=== PATIENT | male | born 1985 | race Caucasian/White ===

== ENCOUNTER 2018-03-03 15:49 | Emergency (ER) | payer OTHER, SELFPAY ==
[2018-03-03 15:58] VITALS: BP 156/98; PULSE 100; RESP 14; TEMP 36.8; O2SAT 98; BMI 33.2
--- NOTE | 2018-03-03 19:47 | PC.NURSE ---
Pt. to room 13 from [facility]
== END 2018-03-03 20:37 | disposition left against medical advice (07) ==
DX: M54.9 Dorsalgia, unspecified (principal)
CPT/HCPCS: 99281; 99283

== ENCOUNTER 2019-07-20 10:18 | Emergency (ER) | payer OTHER, SELFPAY ==
[2019-07-20 10:18] VITALS: BP 148/87; PULSE 85; RESP 19; TEMP 36.6; O2SAT 97; BMI 33.9
--- NOTE | 2019-07-20 10:30 | DI.RAD.S_ITS ---
PROCEDURE: XR CHEST 1V INDICATIONS: chest pain TECHNIQUE: One view of the chest was acquired. COMPARISON: None. FINDINGS: Surgical changes and devices: None. Lungs and pleura: Lungs are clear. No pleural effusions or pneumothorax. Mediastinum: Mediastinal contours appear normal. Heart size is normal. Bones and chest wall: No suspicious bony lesions. Overlying soft tissues appear unremarkable. IMPRESSION: No acute cardiopulmonary disease process. Dictated by: Zoe Dominguez MD, PhD on 07/20/2019 at 11:10 Approved by: Zoe Dominguez MD, PhD on 07/20/2019 at 11:10
[2019-07-20 10:32] VITALS: BP 148/89; PULSE 87; RESP 17; O2SAT 95
[2019-07-20 10:36] LABS: Add Manual Diff / Slide Review NO; Basophils Absolute Auto 100 /uL (0-100); Basophils Percent Auto 0.7 % (0-2); Eosinophils Absolute Auto 200 /uL (0-450); Eosinophils Percent Auto 1.5 % (2-4); Hematocrit 44.4 % (41-53); Hemoglobin 15.9 g/dL (13.5-17.5); Lymphocytes Absolute Auto 2600 /uL (1100-4500); Lymphocytes Percent Auto 18.4 % (25-40); Mean Corpuscular HGB Conc 35.9 % (30-36); Mean Corpuscular Hemoglobin 31.8 PG (26-34); Mean Corpuscular Volume 88.5 fL (80-100); Monocytes Absolute Auto 900 /uL (0-900); Monocytes Percent Auto 6.6 % (3-14); Neutrophils Absolute Auto 10200 /uL (1500-7000); Neutrophils Percent Auto 72.8 % (50-75); Platelet Count 340 X10^3/uL (150-400); Red Blood Cell Count 5.01 X10^6/uL (4.5-5.9); Red Cell Distribution Width 12.9 % (11.6-14.8); White Blood Cell Count 14.1 X10^3/uL (4.5-11.0)
[2019-07-20] MEDS: MAG HYDROX/ALUMINUM/SIMETH SUS 20 ML, LIDOCAINE VISCOUS 2% 15 ML PO (10:45)
[2019-07-20] MEDS: ASPIRIN 81 MG CHEW TAB 324 MG PO (10:45)
[2019-07-20 10:47] LABS: Alanine Aminotransferase 32 IU/L (<50); Albumin 4.6 g/dL (3.5-5.0); Albumin Globulin Ratio 1.4 (1.0-2.8); Alkaline Phosphatase 75 U/L (38-126); Aspartate Aminotransferase 28 IU/L (17-59); BUN Creatinine Ratio 23.3 (6-22); Bilirubin Total 0.4 mg/dL (0.2-1.3); Blood Urea Nitrogen 14 mg/dL (9-20); Calcium 9.5 mg/dL (8.4-10.2); Carbon Dioxide 23 mmol/L (22-32); Chloride 105 mmol/L (98-107); Creatine Kinase 157 U/L (55-170); Estimated Glomerular Filt Rate > 60.0 mL/min (>60); Globulin 3.2 g/dL (1.7-4.1); Glucose 103 mg/dL (70-100); HEMOLYSIS < 15 (0-50); Lipase 48 U/L (23-300); Potassium 4.1 mmol/L (3.4-5.1); Sodium 138 mmol/L (137-145); Total Protein 7.8 g/dL (6.3-8.2)
--- NOTE | 2019-07-20 10:52 | ED_ITS ---
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 It was nonradiating he denies any shortness of breath with exertion no nausea. He has never felt anything like this before. He does take 800 mg of ibuprofen twice a day for chronic ongoing back pain. He says go he is in the ED it does seem to be getting little bit better. complaint: chest pain Onset (ago): hour(s) Duration: improved Onset: during exertion Pain location: substernal Severity: mild Quality: tightness Pain radiation: none Relieving factors: nothing Exacerbating factors: nothing Related Data Home Medications Medication Instructions Recorded Confirmed cyclobenzaprine 10 mg PO BID PRN 07/20/19 07/20/19 ibuprofen [IBU] 800 mg PO TID PRN 07/20/19 07/20/19 oxycodone-acetaminophen 1 tab PO QID PRN 07/20/19 07/20/19 Allergies Allergy/AdvReac Type Severity Reaction Status Date / Time hydrocodone Allergy Severe ITCHING Verified 07/20/19 10:26 tramadol Allergy Severe Headache Verified 07/20/19 10:26 Review of Systems Review of Systems Narrative: GENERAL: Denies chills, fatigue, malaise, fever, sweats, travel HEENT: Denies sinus pain, ear pain, sore throat, difficulty swallowing, neck pain RESPIRATORY: Denies dyspnea, cough, wheezing, hemoptysis, sputum. CARDIOVASCULAR: See HPI GASTROINTESTINAL: Denies nausea, vomiting, abdominal pain, diarrhea, constipation, melena. : Denies dysuria, frequency, incontinence, hematuria, urinary retention, flank pain. MUSCULOSKELETAL: Denies weakness, joint pain, or bony pain SKIN: No rash, no erythema, no pruritus NEUROLOGIC: Denies weakness, dizziness, headache, numbness, change in speech, confusion PSYCHIATRIC: No concerning psychosocial issues. 12 point review of systems is negative except for those stated above and HPI Patient History Medical History Chronic back pain (Acute) Social History (Reviewed 07/20/19 @ 11:00 by ANUSHKA Mackey Smoking Status: Current some day smoker Smoking Status: Current some day smoker alcohol intake frequency: a few times a month Substance Use Type: does not use Exam Initial Vital Signs Initial Vital Signs: Vital Signs Temperature 97.8 F 07/20/19 10:18 Pulse Rate 85 07/20/19 10:18 Respiratory Rate 19 07/20/19 10:18 Blood Pressure 148/87 H 07/20/19 10:18 Pulse Oximetry 97 07/20/19 10:18 GENERAL: Well-appearing, well-nourished and in no acute distress. HEENT: Head atraumatic,EOMI, pupils reactive, face symmetric, moist mucous membranes CARDIOVASCULAR: Regular rate and rhythm without murmurs, rubs or gallops. RESPIRATORY: Breath sounds equal bilaterally, no wheezes rales or rhonchi. ABDOMEN: Soft, nontender. Normoactive bowel sounds all 4 quadrants. No guar ding or rebound. EXTREMITIES: Normal range of motion, no clubbing or edema. Neurovascularly intact NEUROLOGICAL: Alert and oriented x4.Normal gait and speech. Cranial nerves II through XII grossly intact. SKIN: Warm, dry, no laceration, no petechiae, no rashes or lesions. Scores HEART Score Heart Score history: Slightly Suspicious Heart Score EKG: Normal Heart Score Age: < 45 years old Heart Score risk factors: No known risk factors Heart Score troponin: < or = to normal limit Heart Score Total: 0 Course Orders Ordered: Discontinued Medications Aspirin (Aspirin Chew) 324 mg PO NOW ONE Stop: 07/20/19 10:31 Last Admin: 07/20/19 10:45 Dose: 324 mg Documented by: MOOKIE Al Hydrox/Mg Hydrox/Simethicone 20 ml/ Lidocaine HCl 15 ml 0 ml PO NOW ONE Stop: 07/20/19 10:31 Last Admin: 07/20/19 10:45 Dose: 35 ml Documented by: MOOKIE Vital Signs Vital signs: Vital Signs - 8 hr 07/20/19 10:18 07/20/19 10:32 Temperature 97.8 F Pulse Rate 85 87 Respiratory Rate 19 17 Blood Pressure 148/87 H Blood Pressure [Right Arm] 148/89 H Pulse Oximetry 97 95 MDM - Chest Pain Lab Data Attestation: I reviewed the patient's lab results. Result diagrams: 07/20/19 10:28 07/20/19 10:28 Labs: Lab Results 07/20/19 07/20/19 07/20/19 Range/Units 10: 10:28 12:10 WBC 14.1 H (4.5-11.0) X10^3/uL RBC 5.01 (4.5-5.9) X10^6/uL Hgb 15.9 (13.5-17.5) g/dL Hct 44.4 (41-53) % MCV 88.5 (80-100) fL MCH 31.8 (26-34) PG MCHC 35.9 (30-36) % RDW 12.9 (11.6-14.8) % Plt Count 340 (150-400) X10^3/uL Neut % (Auto) 72.8 (50-75) % Lymph % (Auto) 18.4 L (25-40) % Pettis % (Auto) 6.6 (3-14) % Eos % (Auto) 1.5 L (2-4) % Baso % (Auto) 0.7 (0-2) % Neut # (Auto) 36014 H (7660-4681) /uL Lymph # (Auto) 2600 (6900-1781) /uL Pettis # (Auto) 900 (0-900) /uL Eos # (Auto) 200 (0-450) /uL Baso # (Auto) 100 (0-100) /uL Sodium 138 (137-145) mmol/L Potassium 4.1 (3.4-5.1) mmol/L Chloride 105 (98-107) mmol/L Carbon Dioxide 23 (22-32) mmol/L BUN 14 (9-20) mg/dL Creatinine 0.60 L (0.66-1.25) mg/dL Estimated GFR > 60.0 (>60) mL/min BUN/Creatinine Ratio 23.3 H (6-22) Glucose 103 H (70-100) mg/dL Calcium 9.5 (8.4-10.2) mg/dL Total Bilirubin 0.4 (0.2-1.3) mg/dL AST 28 (17-59) IU/L ALT 32 (<50) IU/L Alkaline Phosphatase 75 (38-126) U/L Total Creatine Kinase 157 (55-170) U/L CK-MB (CK-2) 1.49 (<2.37) ng/mL CK-MB (CK-2) Rel Index 0.9 L (1.5-5.0) % Troponin I < 0.012 < 0.012 (0.01-0.034) ng/mL Total Protein 7.8 (6.3-8.2) g/dL Albumin 4.6 (3.5-5.0) g/dL Globulin 3.2 (1.7-4.1) g/dL Albumin/Globulin Ratio 1.4 (1.0-2.8) Lipase 48 (23-300) U/L Imaging Data Chest x-ray: Radiologist's Impression: PROCEDURE: XR CHEST 1V INDICATIONS: chest pain TECHNIQUE: One view of the chest was acquired. COMPARISON: None. FINDINGS: Surgical changes and devices: None. Lungs and pleura: Lungs are clear. No pleural effusions or pneumothorax. Mediastinum: Mediastinal contours appear normal. Heart size is normal. Bones and chest wall: No suspicious bony lesions. Overlying soft tissues appear unremarkable. IMPRESSION: No acute cardiopulmonary disease process. Dictated by: Zoe Dominguez MD, PhD on 07/20/2019 at 11:10 Approved by: Zoe Dominguez MD, PhD on 07/20/2019 at 11: ECG Data Attestation: I personally reviewed and interpreted this ECG as follows: Prior ECG tracings: not available for review Interpretation: Normal sinus rhythm rate 86 p.r. interval 176 QRS [address] elevation depression or T-wave inversion no priors to compare MDM Narrative Medical decision making narrative: Patient's pain has completely improved his low risk heart score this is unlikely to be cardiac. Nonetheless I recommend he follow-up with his PCP at [facility]. Discharge Plan Departure Patient Disposition: Home Clinical Impression: Atypical chest pain Discharge Date/Time: 07/20/19 13:23 Instructions: DI for Atypical Chest Pain Activity Restrictions/Additional Instructions: *You have been diagnosed with atypical chest *What to do: You may require further cardiac testing however at this time you are considered low risk *Continue to take medications as directed *Follow up with your primary care provider in 2-3 days *Return to ER if you should have increasing chest pain, shortness of breath or any new, worsening or concerning symptoms Prescriptions: No Action cyclobenzaprine 10 mg tablet 10 mg PO BID PRN (Reason: Back Pain) RF: 0 ibuprofen [IBU] 800 mg tablet 800 mg PO TID PRN (Reason: Pain (Scale Score 4-6)) RF: 0 oxycodone-acetaminophen 5-325 mg tablet 1 tab PO QID PRN (Reason: Back Pain) RF: 0
[2019-07-20 10:58] LABS: Troponin I < 0.012 ng/mL (0.01-0.034)
[2019-07-20 11:02] LABS: CKMB % Relative Index 0.9 % (1.5-5.0); Creatine Kinase MB 1.49 ng/mL (<2.37)
[2019-07-20 11:07] VITALS: BP 133/86; PULSE 80; RESP 21; O2SAT 95
[2019-07-20 12:30] VITALS: BP 126/80; PULSE 71; RESP 16; O2SAT 98
[2019-07-20 13:00] VITALS: BP 119/74; PULSE 74; RESP 19; O2SAT 99
[2019-07-20 13:03] LABS: Troponin I < 0.012 ng/mL (0.01-0.034)
== END 2019-07-20 13:23 | disposition home or self-care (01) ==
PROVIDERS: Emergency Provider Emergency Medicine
DX: R07.89 Other chest pain (principal)
CPT/HCPCS: 36415; 71045; 80053; 82550; 82553; 83690; 84484; 85025; 93005; 93010; 99284; 99285